=== PATIENT | female | born 1980 | race Caucasian/White ===

== ENCOUNTER → 2017-04-12 | Outpatient (CLI) | payer BC ==
[2017-04-12 16:24] LABS: BASOPHILS % (AUTO) 0.3 % (0-2); EOSINOPHILS # (AUTO) 0.1 T/MM3 (0-0.5); EOSINOPHILS % (AUTO) 1.2 % (0-4); HCT - HEMATOCRIT 38.9 % (36-46); HGB - HEMOGLOBIN 13.7 GM/DL (12-16); IMMATURE GRANULOCYTE # (AUTO) 0.01 T/MM3 (0.00-0.03); IMMATURE GRANULOCYTE % (AUTO) 0.2 % (0.0-0.5); LYMPHOCYTES % (AUTO) 46.1 % (23-45); MEAN CORPUSCULAR HGB CONC(MCHC 35.2 GM/DL (31-37); MEAN CORPUSCULAR VOLUME 85.1 UM3 (80-100); MEAN PLATELET VOLUME 10.3 UM3 (9.4-12.4); MONOCYTES # (AUTO) 0.3 T/MM3 (0-0.8); MONOCYTES % (AUTO) 4.4 % (0-9.0); NEUTROPHILS #(AUTO)-ABSOLUTE 3.2 T/MM3 (1.8-7.7); NEUTROPHILS % (AUTO) 47.8 % (33-66); RED BLOOD COUNT 4.57 M/MM3 (4.00-5.20); WBC - WHITE BLOOD COUNT 6.6 T/MM3 (4.5-11.0)
[2017-04-12 16:34] LABS: ALBUMIN 4.7 G/DL (3.5-5.0); ALBUMIN/GLOBULIN RATIO 1.7 RATIO (1.1-2.2); ALKALINE PHOSPHATASE 55 U/L (38-126); ALT (SGPT) 36 U/L (9-52); ANION GAP 13 MEQ/L (5-15); AST (SGOT) 16 U/L (14-36); BUN/CREATININE RATIO 19 RATIO (6-26); C-REACTIVE PROTEIN < 5.0 MG/L (0-9); CALCIUM 9.5 MG/DL (8.4-10.2); CHLORIDE 104 MEQ/L (98-107); CO2 - CARBON DIOXIDE 28 MEQ/L (22-30); CREATININE 0.8 MG/DL (0.7-1.2); GLOMERULAR FILTRATION RATE 81; GLUCOSE 92 MG/DL (65-110); SODIUM 145 MEQ/L (134-144); TOTAL PROTEIN 7.4 G/DL (6.3-8.2)
[2017-04-12 17:02] LABS: THYROID STIM HORMONE-TSH 0.93 MIU/L (0.47-4.68)
[2017-04-13 01:50] LABS: FREE T4 (FREE THYROXINE)-BATCH 0.98 NG/DL (0.78-2.19); T3 FREE - BATCH 3.21 PG/ML (2.77-5.27)
== END ==
LOC: LAB 15:54
PROVIDERS: ATTEND Family Medicine
DX: M79.1 Myalgia (principal)
CPT/HCPCS: 36415; 80053; 83516; 84439; 84443; 84481; 85025; 85610; 85613; 85652; 85730; 86038; 86140; 86431